=== PATIENT | female | born 1960 | race Caucasian/White ===

== ENCOUNTER 2025-11-08 13:29 | Emergency (ER) | payer OTHER, SELFPAY ==
[2025-11-08] VITALS (12 sets, daily range): BP systolic 137–236; BP diastolic 70–125; BMI 39.9
--- NOTE | 2025-11-08 14:44 | ED.GENMED ---
History of Present Illness
<Rob Mccurdy PA-C - Last Filed: 11/09/25 11:40>
General
Chief Complaint: Fall
Source: patient
Time Seen by Provider: 11/08/25 14:33
History of Present Illness
History of Present Illness:
65-year-old female with past medical history of hypertension, hypothyroidism and anxiety presenting to the emergency department for evaluation after she was attempting to go walk upstairs to go to sleep last night and accidentally stumbled causing
her to fall backwards down approximately 5 or 6 steps falling straight onto her back now noting right upper and middle back pain at rest, generalized pain throughout the entirety of her right thoracic area when she coughs or moves but is denying any
shortness of breath at rest. Patient states she does not believe she hit her head and denied any loss of consciousness, vomiting, visual changes, extremity related injuries or concerns. Patient is not on any anticoagulant medicine. She does state
that the last few days she has not taken her blood pressure medication as she is often times noncompliant with this. Patient does note that she ambulated last night and today following the fall.
Past History
<Rob Mccurdy PA-C - Last Filed: 11/09/25 11:40>
Past History
ED Past Medical History: HTN and Hypothyroidism
ED Past Surgical History: Cholecystectomy and
Social History
Tobacco: Smoker
Alcohol: Occasional
Drug: None
Personal:
Living: with family
Review of Systems
<Rob Mccurdy PA-C - Last Filed: 11/09/25 11:40>
Review of Systems
All Other Systems: ROS reviewed and negative except as documented in HPI and ROS
Phy Exam
<BEATRIZ Whittaker Last Filed: 11/09/25 11:40>
Physical Exam
Physical Exam:
GENERAL: Alert , appears older than stated age, also appears quite uncomfortable
HEAD: Normocephalic atraumatic
EYE: conjunctiva clear
NECK: Supple
ENT: o/p clr, mmm.
CARDIAC: Regular rate and rhythm
LUNGS: Clear breath sounds bilaterally, no acute respiratory distress, no wheezes/rales/rhonchi
BACK: There is generalized tenderness around the posterolateral ribs 8 through 10 but no flail chest, no obvious signs of trauma
NEUROLOGICAL: Alert and oriented
SKIN: Warm and dry, skin intact.
MUSCULOSKELETAL: well perfused. No abnormal bruising or breaks in skin
PSYCH: Normal and appropriate interaction.
Scores
<Rob Mccurdy PA-C - Last Filed: 11/09/25 11:40>
Heart Failure Risk
Heart Failure Risk Score: Not Applicable
Heart Score for Chest Pain Patients
STEMI patient?: Not applicable
Withdrawal Assessment of Alcohol
Withdrawal Assessment Completed?: Not applicable
Course
<Rob Mccurdy PA-C - Last Filed: 11/09/25 11:40>
Orders/Labs/Results
Orders:
Orders
11/08/25 14:39
CT Cervical Spine W/o Iv Contr Urgent
Comment:
Reason For Exam: fall down 5-6 stairs
CR Ribs-right 3 Vw W/pa Chest* Urgent
Comment:
Reason For Exam: fall down 5-6 stairs, lateral rib pain 8-10
11/08/25 14:40
CT Head W/o Iv Contrast Urgent
Comment:
Reason For Exam: fall down 5-6 stairs
Morphine Sulfate 4 mg IV NOW STA
11/08/25 15:50
Basic Metabolic Panel Urgent
Complete Blood Count/With Diff Urgent
PTT Urgent
Prothrombin Time Urgent
11/08/25 15:52
Labetalol HCl [Trandate] 10 mg IV NOW STA
11/08/25 15:53
CT Chest/abd/pel Wo Iv Cont Urgent
Comment:
Reason For Exam: trauma
11/08/25 16:47
Potassium Chloride [KCl] 40 meq PO NOW STA
Abnormal Lab Results
11/08/25
15:50
WBC 11.3 H 10^3/uL
(4.8-10.8)
Hgb 16.2 H g/dL
(12.0-16.0)
MCH 33.5 H pg
(27.0-31.0)
Absolute Neuts (auto) 9.2 H 10^3/uL
(1.4-6.5)
Neutrophils % 81.7 H %
(42.2-75.2)
Lymphocytes % 12.0 L %
(20.5-51.1)
Sodium 133 L mmol/L
(135-145)
Potassium 2.8 L mmol/L
(3.5-5.1)
Chloride 92 L mmol/L
(98-107)
Carbon Dioxide 32 H mmol/L
(22-30)
Glucose 126 H mg/dl
(70-99)
11/08/25 15:50
11/08/25 15:50
Vital Signs
Initial and Last Documented VS:
Initial Vital Signs
Temp Pulse Resp BP Pulse Ox
98.5 F 72 16 172/120 95
11/08/25 13:31 11/08/25 13:31 11/08/25 13:31 11/08/25 13:31 11/08/25 13:31
Last Documented Vital Signs
Temp Pulse Resp BP Pulse Ox
98.5 F 60 15 168/90 97
11/08/25 13:31 11/08/25 16:45 11/08/25 16:45 11/08/25 16:40 11/08/25 16:45
<Sebastián Hdz MD - Last Filed: 11/08/25 16:04>
Orders/Labs/Results
Orders:
Orders
11/08/25 14:39
CT Cervical Spine W/o Iv Contr Urgent
Comment:
Reason For Exam: fall down 5-6 stairs
CR Ribs-right 3 Vw W/pa Chest* Urgent
Comment:
Reason For Exam: fall down 5-6 stairs, lateral rib pain 8-10
11/08/25 14:40
CT Head W/o Iv Contrast Urgent
Comment:
Reason For Exam: fall down 5-6 stairs
Morphine Sulfate 4 mg IV NOW STA
11/08/25 15:50
Basic Metabolic Panel Urgent
Complete Blood Count/With Diff Urgent
PTT Urgent
Prothrombin Time Urgent
11/08/25 15:52
Labetalol HCl [Trandate] 10 mg IV NOW STA
11/08/25 15:53
CT Chest/abd/pel Wo Iv Cont Urgent
Comment:
Reason For Exam: trauma
11/08/25 16:47
Potassium Chloride [KCl] 40 meq PO NOW STA
Abnormal Lab Results
11/08/25
15:50
WBC 11.3 H 10^3/uL
(4.8-10.8)
Hgb 16.2 H g/dL
(12.0-16.0)
MCH 33.5 H pg
(27.0-31.0)
Absolute Neuts (auto) 9.2 H 10^3/uL
(1.4-6.5)
Neutrophils % 81.7 H %
(42.2-75.2)
Lymphocytes % 12.0 L %
(20.5-51.1)
Sodium 133 L mmol/L
(135-145)
Potassium 2.8 L mmol/L
(3.5-5.1)
Chloride 92 L mmol/L
(98-107)
Carbon Dioxide 32 H mmol/L
(22-30)
Glucose 126 H mg/dl
(70-99)
11/08/25 15:50
11/08/25 15:50
Vital Signs
Initial and Last Documented VS:
Initial Vital Signs
Temp Pulse Resp BP Pulse Ox
98.5 F 72 16 172/120 95
11/08/25 13:31 11/08/25 13:31 11/08/25 13:31 11/08/25 13:31 11/08/25 13:31
Last Documented Vital Signs
Temp Pulse Resp BP Pulse Ox
98.5 F 60 15 168/90 97
11/08/25 13:31 11/08/25 16:45 11/08/25 16:45 11/08/25 16:40 11/08/25 16:45
<Rob Mccurdy PA-C - Last Filed: 11/09/25 11:40>
MDM/Problems Addressed
Differential Diagnosis Includes:
Rib fracture
Pneumothorax
Contusion
Intracranial bleeding
Other visceral injury
Uncontrolled hypertension
MDM/Problems Addressed:
65-year-old female presenting to the ER for evaluation of an accidental fall resulting in significant right sided upper to mid back pain that worsens with cough or deep inspiration. No reported head injury. No loss of consciousness. Patient is
not on any anticoagulant medication. Rib series ordered, CT of the head and C-spine ordered, pain control with morphine. Disposition pending.
Chronic conditions affecting care: HTN
Acute Exacerbation and/or Progression of Chronic Illness: HTN
<Rob Mccurdy PA-C - Last Filed: 11/09/25 11:40>
*Pulse Oximetry
SaO2: 99
Oxygen Mode of Delivery: Room air
Patient hypoxic: no
*Critical Care Note
Total Time (30-74mins, 75-104mins- exclusive of procedures): 38
comment:
Critical care statement: A total of 38 minutes of critical care time was provided for this patient. This includes management of unstable vital signs, evaluation of the patient at bedside, reviewing the patient's pertinent medical records, discussion
with consultants, review of old EKGs and review of pertinent medical records. This time with separate from time utilized to perform the aforementioned documented procedures
<Rob Mccurdy PA-C - Last Filed: 11/09/25 11:40>
Patient Management
Discussion with other providers: Radiologist
Escalation/DeEscalation of care consider admission/obs:
3:30 PM: Received notification from radiology that patient had has a large subacute and small area of acute right subdural hematoma with 4 mm midline shift. I discussed the subacute finding with family while patient was waiting in x-ray, they do
note patient had another fall about 1 to 2 weeks ago while attempting to get in the shower but has not been complaining of headaches or any injury from the fall. Patient confirmed this history later upon returning to the room. Based off the
findings today decision was ultimately made to transfer patient to tertiary facility, family requesting [facility]. Awaiting consult with transfer team.
4:00 PM case discussed with trauma team at [facility]. Accepted in transfer. BP still noted to be significantly elevated. Treated with 10mg labetalol IV. Will consider cardene if no improvement
ED Attending Note
<Rob Mccurdy PA-C - Last Filed: 11/09/25 11:40>
-
Portions of this chart may have been created with voice recognition software.� Occasional wrong word or��sound alike� substitutions may have occurred due to the inherent limitations of voice recognition software.
<Sebastián Hdz MD - Last Filed: 11/08/25 16:04>
ED Attending Note
Patient seen and examined by attending physician: Yes
ED Attending Note:
I have seen and evaluated the patient with a [id number] encounter. I have spoken to the advance practicer provider and involved in the medical history, the physical exam, medical decision making.
Evaluation and management service: agree unless noted differently below.
Results interpretation: agree unless noted differently below.
Focused HPI: 65-year-old female with history as noted presents for evaluation after a slip and fall. Patient was walking up the steps and lost her balance fell backwards down about 4 or 5 steps. She did hit her head, did not lose consciousness.
Complains of pain in her right upper back/ribs, mild headache and neck pain. Denies any injury to the extremities. No numbness or weakness in extremities. Denies being on blood thinners. She did have a slip and fall in the shower last week with
head strike but did not seek care.
Physical exam: Awake and alert, nontoxic. Hypertensive but otherwise stable vitals. Head atraumatic, no midline cervical tenderness but mild right paraspinal tenderness. Mild tenderness in the right upper posterior ribs, no anterior chest wall
tenderness or instability. No abdominal tenderness. Extremities appear atraumatic.
Medical Decision Makin-year-old female presents to the ER for evaluation after fall downstairs. She is not on blood thinners. She did have head strike and has right posterior rib pain. Initial rib series negative for fracture. Sent for CT
head and cervical spine which showed both acute and subacute appearing components of subdural hemorrhage. Will send back for CT chest/abdomen/pelvis to rule out other injuries. Discussed with trauma team at [facility] for transfer. She remains
severely hypertensive will control pain and treat with labetalol to start.
Discharge Plan
Departure
Patient Disposition: [facility]
Date of Disposition: 11/08/25
Time of Disposition: 16:02
Discharge Problem:
Subdural hematoma, Hypertension
Prescriptions:
No Action
levothyroxine 150 mcg Tablet
150 mcg PO HS
venlafaxine [Effexor XR] 150 mg Capsule,Extended Release 24hr
150 mg PO HS Qty: 30 0RF
lisinopril-hydrochlorothiazide 20-12.5 mg tablet
1 tab PO HS
naproxen sodium [Aleve] 220 mg Tablet
880 mg PO DAILYPRN PRN (Reason: mild pain)
Patient Comments:
takes 4 tabs together
Referrals:
Rodríguez Brooke MD [Family Provider, [facility]]
Hospital Transfer
Other hospital: [facility]
I certify that the patient requires transfer: Yes
Discussed case with accepting physician: Dr. Romero
Reason for transfer: higher level of care, medical necessity and specialties available
Interventions
Interventions:
*Risk Screen - Suicide Last Done: 11/08/25 13:34
*General Assessment Last Done: 11/08/25 13:57
*Neglect/Abuse Screening Last Done: 11/08/25 13:34
*ED COVID-19 Vaccine History Last Done: 11/08/25 15:57
*ED Influenza Vaccine History Last Done: 11/08/25 15:57
[facility] Fall Risk Assessment Tool Last Done: 11/08/25 17:16
*Nursing Disposition Last Done: 11/08/25 17:16
ED-Musculoskeletal Assessment Last Done: 11/08/25 13:57
ED- Neurological Assessment Last Done: 11/08/25 13:57
ED-Skin Assessment Last Done: 11/08/25 13:57
Discharge Date and Time
Discharge Date/Time: 11/08/25 17:18
Print Language: GERMAN
[2025-11-08] MEDS: MORPHINE SULFATE 4 MG IV (15:52)
[2025-11-08 16:01] LABS: Hematocrit 44.6 % (37.0-47.0); Hemoglobin 16.2 g/dL (12.0-16.0); Mean Corp Hgb Conc. 36.3 g/dL (33.0-37.0); Mean Corpuscular Volume 92.1 fL (81.0-99.0); Nucleated Red Blood Cells % 0 %; Platelet Count 163 10^3/uL (130-400); Red Cell Dist. Width 12.7 % (11.5-14.5)
[2025-11-08] MEDS: TRANDATE 10 MG IV (16:04)
[2025-11-08 16:09] LABS: INR 1.05; PT 13.8 Sec (11.4-14.6)
[2025-11-08 16:10] LABS: APTT 26.9 Sec (23.4-35.0)
[2025-11-08 16:21] LABS: Blood Urea Nitrogen 8 mg/dl (7-17); Calcium 8.8 mg/dl (8.4-10.2); Carbon Dioxide 32 mmol/L (22-30); Chloride 92 mmol/L (98-107); Estimated Creatinine Clearance > 125 ml/min; Glucose 126 mg/dl (70-99); Potassium 2.8 mmol/L (3.5-5.1); Sodium 133 mmol/L (135-145); eGFR > 60.00
[2025-11-08] MEDS: KCL 40 MEQ PO (17:01)
== END 2025-11-08 17:18 | disposition short-term general hospital (02) ==
LOC: EMR 13:29
PROVIDERS: Physician Assistant Medical; EMERGENCY PHYSICIAN Emergency Medicine; FAMILY PHYSICIAN Family Medicine
DX: S06.5X0A Traumatic subdural hemorrhage without loss of consciousness, initial encounter (principal); W10.9XXA Fall (on) (from) unspecified stairs and steps, initial encounter; E03.9 Hypothyroidism, unspecified; I10 Essential (primary) hypertension; Z90.49 Acquired absence of other specified parts of digestive tract; F17.200 Nicotine dependence, unspecified, uncomplicated
CPT/HCPCS: 96374; 96375; 99291; 70450; 71101; 71250; 72125; 74176; 80048; 85025; 85610; 85730